=== PATIENT | male | born 1955 | race African-American/Black ===

== ENCOUNTER → 2023-07-07 | Emergency (ER) | payer OTHER ==
--- NOTE | 2023-07-07 13:43 | EDPHYS ---
Physician Documentation [facility] Name: Herbert Campbell Age: 68 yrs Sex: Male : 1955 Arrival Date: 07/07/2023 Time: 12:38 Bed DX1 Private MD: Hai Rdz E ED Physician Sloan Dimas HPI: 07/06 13:41 This 68 yrs old Black Male presents to ER via Ambulatory with complaints of Arm Pain. ec2 13:41 Patient arrives today for evaluation of the left bicep injury. Patient reports that he ec2 was doing a lifting motion with subsequently he felt a strain in the left bicep. Patient reports this injury happened approximately 1 week ago. Denies any falls or injuries or trauma restricts. Patient states he has taken hydrocodone from a friend with improvement in symptoms.. Historical: - Allergies: 12:52 No Known Allergies; ph - PMHx: 12:52 None; ph - PSHx: 12:52 None; ph - Immunization history:: Adult Immunizations unknown. - Social history:: Smoking status: Patient denies any tobacco usage or history of. ROS: 13:41 Constitutional: as per hpi ec2 Exam: 13:41 Constitutional: GEN: NAD Head: atraumatic Eyes: EOMI Ears: External ears are ec2 normal. CV: regular rate LUNGS: no respiratory distress ABD: non-distended SKIN: no evidence of rashes MSK: Left upper extremity with ecchymosis of the bicep, TTP to the proximal bicep, intact flexor and extensor mechanism. Intact distal neurovascular status. NEURO: moves all extremities equally Vital Signs: 12:50 BP 171 / 88; Pulse 58; Resp 18; Temp 97.4; Pulse Ox 100% on R/A; Weight 63.5 kg; Height ph 5 ft. 6 in. ; 12:50 Body Mass Index 22.60 (63.50 kg, 167.64 cm) ph MDM: 13:14 Patient medically screened. ec2 13:41 Data reviewed: vital signs. ED course: Patient arrives today for left bicep injury ec2 examination is consistent with partial left bicep tear as the patient has intact flexor mechanism. I will prescribe her Robaxin, I instructed him on sling use and I will have him follow-up with orthopedic surgery. I considered other process such as fracture however no fall or significant trauma, will defer radiograph of the humerus.. Administered Medications: No medications were administered Disposition Summary: 07/07/23 13:43 Discharge Ordered Notes: Location: Home ec2 Condition: Stable ec2 Diagnosis - Bicep Tear ec2 Followup: ec2 - With: Shad Stewart MD - When: - Reason: Recheck today's complaints Discharge Instructions: - Discharge Summary Sheet ec2 - Proximal Biceps Tendon Tear ec2 Forms: - Medication Reconciliation Form ec2 - Thank You Letter ec2 - Antibiotic Education ec2 - Prescription Opioid Use ec2 - Patient Portal Instructions ec2 - Leadership Thank You Letter ec2 Prescriptions: - methocarbamol 500 mg Oral tablet - take 1 tablet ORAL route 4 times per day; 30 tablet; Refills: 0, Product ec2 Selection Permitted Signatures: Kimberly Ta, RN RN Sloan Anderson MD MD ec2
--- NOTE | 2023-07-07 13:43 | ER ---
Nurse's Notes [facility] Name: Herbert Campbell Age: 68 yrs Sex: Male : 1955 Arrival Date: 07/07/2023 Time: 12:38 Bed DX1 Private MD: Hai Rdz E Diagnosis: Bicep Tear Presentation: 07/06 12:50 Chief complaint: Patient states: Pain and bruising to L bicep after picking a "floor ph uriah" approx 1 week ago, states that he "felt a pop" when injury occured. Coronavirus screen: Vaccine status: Patient reports being unvaccinated. Ebola Screen: No symptoms or risks identified at this time. Initial Sepsis Screen: Does the patient meet any 2 criteria? No. Patient's initial sepsis screen is negative. Does the patient have a suspected source of infection? No. Patient's initial sepsis screen is negative. Risk Assessment: Do you want to hurt yourself or someone else? Patient reports no desire to harm self or others. Onset of symptoms was July 07, 2023. 12:50 Method Of Arrival: Ambulatory ph 12:50 Acuity: JAKOB 3 ph Triage Assessment: 12:52 General: Appears in no apparent distress. Behavior is calm, cooperative. Pain: ph Complains of pain in left bicep. Historical: - Allergies: 12:52 No Known Allergies; ph - PMHx: 12:52 None; ph - PSHx: 12:52 None; ph - Immunization history:: Adult Immunizations unknown. - Social history:: Smoking status: Patient denies any tobacco usage or history of. Vital Signs: 12:50 BP 171 / 88; Pulse 58; Resp 18; Temp 97.4; Pulse Ox 100% on R/A; Weight 63.5 kg; Height ph 5 ft. 6 in. ; 12:50 Body Mass Index 22.60 (63.50 kg, 167.64 cm) ph ED Course: 12:40 Patient arrived in ED. rg4 12:40 Hai Rdz MD is Private Physician. rg4 12:41 Sloan Dimas MD is Attending Physician. ec2 12:52 Triage completed. ph 12:52 Arm band placed on Patient placed in waiting room, Patient notified of wait time. ph 13:43 Shad Stewart MD is Referral Physician. ec2 13:55 Mai Jasmine, RN is Primary Nurse. kc6 Administered Medications: No medications were administered Outcome: 13:43 Discharge ordered by . ec2 13:55 Patient left the ED. kc6 Signatures: Kimberly Ta, RN RN Kate Garcia rg4 Mai Jasmine, LAYTON RN kc6 Sloan Dimas MD MD ec2 Corrections: (The following items were deleted from the chart) 12:53 12:50 BP 171 / 88; Pulse 48bpm; Resp 18bpm; Pulse Ox 100% RA; Temp 97.4F; 63.5 kg; ph Height 5 ft. 6 in.; BMI: 22.6; ph
[2023-07-07 14:25] VITALS: BP 171/88; TEMP 97.4; O2SAT 100
== END ==
LOC: ER 12:38
DX: S46.212A Strain of muscle, fascia and tendon of other parts of biceps, left arm, initial encounter (principal)
CPT/HCPCS: 99281